=== PATIENT | female | born 1975 | race African-American/Black ===

== ENCOUNTER 2018-11-10 12:09 | Emergency (ER) | payer MEDICARE ==
[~2018-11-10] VITALS: Ht 170.2 cm; Wt 58.0 kg
[2018-11-10 12:15] VITALS: BP 95/66
== END 2018-11-10 13:08 | disposition home or self-care (01) ==
LOC: ED 13:02
DX: J01.00 Acute maxillary sinusitis, unspecified (principal); F17.200 Nicotine dependence, unspecified, uncomplicated
CPT/HCPCS: 99283